=== PATIENT | male | born 1960 | race Two or more races ===

== ENCOUNTER 2022-04-13 12:32 | Emergency (ER) | payer OTHER ==
[~2022-04-13] VITALS: Ht 175.3 cm; Wt 108.9 kg
--- NOTE | 2022-04-13 12:51 | NUR ---
RIGHT KNEE PAIN AFTER A GLF YESTERDAY
--- NOTE | 2022-04-13 13:28 | NUR ---
Americo erickson in [facility] - 04/13/22 at 1356 by ARIEL X RAY AT BEDSIDE
[2022-04-13] MEDS ORDERED: IBUP-1955 PO (14:17)
[2022-04-13] MEDS ORDERED: KETOROLAC TROMETHAMINE 15 MG/ML VIAL ONE (14:28)
[2022-04-13] MEDS: KETOROLAC TROMETHAMINE INJ 30 MG/ML VIAL IM ONE (14:33)
--- NOTE | 2022-04-13 14:34 | NUR ---
Patient discharged to home in stable condition. Written and verbal after care instructions given. Patient verbalizes understanding of instruction.
[2022-04-13 14:35] VITALS: BP 123/66
== END 2022-04-13 14:35 | disposition home or self-care (01) ==
LOC: ER 12:43
DX: S83.91XA Sprain of unspecified site of right knee, initial encounter (principal); I10 Essential (primary) hypertension; E11.9 Type 2 diabetes mellitus without complications; Z90.49 Acquired absence of other specified parts of digestive tract; W01.0XXA Fall on same level from slipping, tripping and stumbling without subsequent striking against object, initial encounter; Y93.89 Activity, other specified; Y92.89 Other specified places as the place of occurrence of the external cause; Y99.8 Other external cause status
CPT/HCPCS: 73564; 96372; 99283; J1885